=== PATIENT | male | born 1960 | race Caucasian/White ===

== ENCOUNTER 2018-06-13 17:44 | Emergency (ER) | payer OTHER ==
--- NOTE | 2018-06-13 18:02 | EDPHY ---
H & P Time Seen by Provider: 06/13/18 17:48 HPI/ROS: CHIEF COMPLAINT: Left shoulder dislocation HISTORY OF PRESENT ILLNESS: The patient is a 57-year-old man who dove for for softball. He caught it but landed hard on an outstretched arm and dislocated his shoulder. This happened at 11:00 a.m. Today. He presented initially to an urgent care who attained x-rays that revealed an anterior shoulder dislocation. They referred him here. He denies any weakness numbness or paresthesias. No neck or back pain. No other injuries. No previous shoulder dislocations. Severity: Moderate Modifying factors: None REVIEW OF SYSTEMS: Constitutional: denies: chills, fever, recent illness, recent injury EENTM: denies: blurred vision, double vision, nose congestion Respiratory: denies: cough, shortness of breath Cardiac: denies: chest pain, irregular heart rate, lightheadedness, palpitations Gastrointestinal/Abdominal: denies: abdominal pain, diarrhea, nausea, vomiting, blood streaked stools Genitourinary: denies: dysuria, frequency, hematuria, pain Musculoskeletal: See HPI Skin: denies: lesions, rash, jaundice, bruising Neurological: denies: headache, numbness, paresthesia, tingling, dizziness, weakness Hematologic/Lymphatic: denies: blood clots, easy bleeding, easy bruising Immunologic/allergic: denies: HIV/AIDS, transplant 10 systems reviewed and negative except as noted EXAM: GENERAL: Well-appearing, well-nourished and in no acute distress. HEAD: Atraumatic, normocephalic. EYES: Pupils equal round and reactive to light, extraocular movements intact, sclera anicteric, conjunctiva are normal. ENT: TMs normal, nares patent, oropharynx clear without exudates. Moist mucous membranes. NECK: Normal range of motion, supple without lymphadenopathy or JVD. LUNGS: Breath sounds clear to auscultation bilaterally and equal. No wheezes rales or rhonchi. HEART: Regular rate and rhythm without murmurs, rubs or gallops. ABDOMEN: Soft, nontender, normoactive bowel sounds. No guarding, no rebound. No masses appreciated. BACK: No CVA tenderness, no spinal tenderness, step-offs or deformities EXTREMITIES: Left shoulder with step-off, pain with range of motion or movement. Normal pulses and sensation distally. No elbow or wrist pain. NEUROLOGICAL: Cranial nerves II through XII grossly intact. Normal speech, normal gait. 5/5 strength, normal movement in all extremities, normal sensation , normal reflexes PSYCH: Normal mood, normal affect. SKIN: Warm, dry, normal turgor, no visible rashes or lesions. Source: Patient Exam Limitations: No limitations - Personal History Current Tetanus/Diphtheria Vaccine: Yes - Medical/Surgical History Hx Asthma: No Hx Chronic Respiratory Disease: No Hx Diabetes: No Hx Cardiac Disease: No Hx Renal Disease: No Hx Cirrhosis: No Hx Alcoholism: No Hx HIV/AIDS: No Hx Splenectomy or Spleen Trauma: No Other PMH: Hypertension, colon cancer post resection - Family History Significant Family History: No pertinent family hx - Social History Smoking Status: Never smoked Alcohol Use: None Constitutional: Initial Vital Signs Temperature (C) 36.7 C 06/13/18 17:52 Heart Rate 99 06/13/18 17:52 Respiratory Rate 16 06/13/18 17:52 Blood Pressure 132/85 H 06/13/18 17:52 O2 Sat (%) 94 06/13/18 17:52 O2 Delivery Mode [Post Nasal Cannula Procedure 4th] O2 Delivery Mode [Post Nasal Cannula Procedure 3rd] O2 Delivery Mode [Post Nasal Cannula Procedure 2nd] O2 Delivery Mode [Post Nasal Cannula Procedure 1st] O2 Delivery Mode [Procedural Nasal Cannula 2nd] O2 Delivery Mode [Procedural Nasal Cannula,Non-Rebreather Mask 1st] O2 Delivery Mode [.Immediate Room Air Pre-Procedure] O2 Delivery Mode Room Air O2 (L/minute) [Post Procedure 2 4th] O2 (L/minute) [Post Procedure 4 3rd] O2 (L/minute) [Post Procedure 4 2nd] O2 (L/minute) [Post Procedure 4 1st] O2 (L/minute) [Procedural 2nd] 4 O2 (L/minute) [Procedural 1st] 15 Allergies/Adverse Reactions: No Known Allergies Allergy (Verified 06/13/18 17:56) Home Medications: Medication Instructions Recorded Lisinopril 02/02/09 Amlodipine Besylate 06/13/18 Hydrocodone/APAP 5/325 [Miranda 1 - 2 tab PO Q4H PRN #10 tab 06/13/18 5/325 (RX)] PARoxetine HCL 06/13/18 Medical Decision Making - Diagnostics Imaging Results: Imaging Impressions Shoulder X-Ray 06/13/18 18:51 Impression: Humeral head in anatomic position. There is irregularity of the inferior glenoid which may represent a bony Bankart. Imaging: Discussed imaging studies w/ call box wirer Radiologist Procedures: Procedure: Procedural sedation. Indication: Shoulder reduction. A pre-sedation evaluation was completed on the patient just prior to the procedure. Patient is an appropriate candidate for procedural sedation with a normal 3-3-2 rule assessment and a Mallampati airway score of class 2. The risks of the sedation were discussed including but not limited to dysrhythmia, need for airway intervention or general anesthesia, disability, ; and verbal consent obtained. A timeout was observed and patient's identity confirmed. The patient was sedated with ketamine 150 mg. The patient was monitored with continuous pulse oximetry, capnography, and secured entrance monitor. There were no complications and no significant hypoxemia. I remained at the bedside for the sedation. The total time I spent in the procedural sedation was 16 minutes. Procedure: Dislocation reduction. The shoulder was reduced in the usual fashion using the [employer] technique and scapular manipulation without complications. Post reduction the patient's neurovascular exam is normal. Post reduction x-ray demonstrates reduction of the joint to the anatomic position. The procedure was performed by myself. ED Course/Re-evaluation: 6:35 p.m. Patient preferred local anesthesia versus procedural sedation. I injected 30 cc of 0.5% bupivacaine into the patient's shoulder joint. After 30 min he still had not had significant pain relief. At this point we agreed to sedate. 7:00 p.m. Patient was sedated with ketamine. He tolerated this very well. Shoulder was reduced by me and placed in a sling. Post reduction x-rays show good positioning. 7:40 p.m. patient is recovered and is feeling well. We discussed the post reduction care as well as the possible Bankart lesion. I will have him follow up with Orthopedics. He is requesting a prescription for Vicodin. Differential Diagnosis: Partial list of the Differential diagnosis considered include but were not limited to; shoulder dislocation, fracture and although unlikely based on the history and physical exam, I also considered vascular injury, nerve injury, neck injury. I discussed these differential diagnoses and the plan with the patient as well as the usual and expected course. The patient understands that the diagnosis is provisional and that in medicine we are not always correct and that further workup is often warranted. Usual and customary warnings were given. All of the patient's questions were answered. The patient was instructed to return to the emergency department should the symptoms at all worsen or return, otherwise to followup with the physician as we discussed. - Data Points Medications Given: Discontinued Medications Ketamine HCl 150 mg/ Syringe 3 mls @ 180 mls/hr IVP ONCE ONE Stop: 06/13/18 19:01 Last Admin: 06/13/18 19:43 Dose: 3 mls Sodium Chloride (Ns) 1,000 mls @ 0 mls/hr IV EDNOW ONE; Wide Open PRN Reason: Protocol Stop: 06/13/18 19:49 Last Admin: 06/13/18 18:40 Dose: 1,000 mls Departure - Departure Disposition: Home, Routine, Self-Care Clinical Impression: Dislocation of left shoulder joint Qualifiers: Encounter type: initial encounter Qualified Code(s): S43.005A - Unspecified dislocation of left shoulder joint, initial encounter Bankart lesion of left shoulder Qualifiers: Encounter type: initial encounter Qualified Code(s): S43.492A - Other sprain of left shoulder joint, initial encounter Condition: Fair Instructions: Shoulder Dislocation (ED) Referrals: Chai Florentino DO [Primary Care Provider] - As per Instructions Michele Vallejo MD [Medical Doctor] - 5-7 days, call for appt. Prescriptions: Hydrocodone/APAP 5/325 [Miranda 5/325 (RX)] 1 - 2 tab PO Q4H PRN #10 tab PRN Reason: Pain, Moderate
[2018-06-13] MEDS ORDERED: PROPOFOL 200 MG/20 ML VIAL ONE (18:41)
[2018-06-13] MEDS ORDERED: KETAMINE IVP ONE (19:00)
[2018-06-13 19:48] VITALS: BP 103/75
[2018-06-13] MEDS ORDERED: NS 1,000 ML IV ONE (19:48)
== END 2018-06-13 19:59 | disposition home or self-care (01) ==
LOC: CED 17:44
PROC: 0RSKXZZ Reposition Left Shoulder Joint, External Approach (ICD-10-PCS; principal; 2018-06-13)
DX: S43.005A Unspecified dislocation of left shoulder joint, initial encounter (principal); S43.492A Other sprain of left shoulder joint, initial encounter; E86.9 Volume depletion, unspecified; W19.XXXA Unspecified fall, initial encounter; Y93.64 Activity, baseball
CPT/HCPCS: 73030-PO; 96360-ER; 99152-ER; 99284-ER; J2704

== ENCOUNTER → 2018-06-13 | Emergency (ER) | payer SELFPAY | END | disposition left against medical advice (07) | LOC: CED 15:51 | DX: Z53.21 Procedure and treatment not carried out due to patient leaving prior to being seen by health care provider (principal) ==